=== PATIENT | female | born 1955 | race Caucasian/White ===

== ENCOUNTER 2017-02-13 11:18 | Emergency (ER) | payer MEDICAID ==
[~2017-02-13] VITALS: Ht 170.2 cm; Wt 55.0 kg
[~2017-02-13 11:18] MED LIST: CARI250T PO; IBUPROFEN PO; VIC PO
[2017-02-13] MEDS ORDERED: SODIUM CHLORIDE 0.9% 1,000 ML IV ONE (11:33)
[2017-02-13] MEDS ORDERED: HYDROCODONE/ACETAMINOPHEN 10/325MG TABLET PO ONE (12:00)
[2017-02-13 12:13] LABS: BASOPHILS % 0.4 % (0.0-2.0); EOSINOPHILS % 5.4 % (0.0-5.0); HEMATOCRIT. 39.9 % (36.0-48.0); HEMOGLOBIN. 13.7 g/dL (12.0-16.0); LYMPHOCYTES % 27.4 % (20.0-50.0); MEAN CORPUSCULAR HEMOGLOBIN 30.7 pg (28.0-32.0); MEAN CORPUSCULAR VOLUME 89.9 fL (81.0-99.0); MEAN PLATELET VOLUME 8.2 fl (7.4-10.4); MONOCYTES % 6.8 % (2.0-8.0); PLATELET 231 x1000/uL (130-400); RED BLOOD CELL COUNT 4.44 mill/uL (4.2-5.4); RED CELL DISTRIBUTION WIDTH 14.2 % (11.6-14.6)
[2017-02-13 12:31] LABS: CARBON DIOXIDE 26 mEq/L (21-32); CHLORIDE 106 mEq/L (98-107); TROPONIN I < 0.02 ng/mL (0.00-0.04)
[2017-02-13] MEDS ORDERED: KETOROLAC 30MG/ML VIAL IV ONE (14:45)
[2017-02-13 15:44] VITALS: BP 107/75
== END 2017-02-13 15:48 | disposition home or self-care (01) ==
LOC: ER 11:23
DX: S70.02XA Contusion of left hip, initial encounter (principal); R42 Dizziness and giddiness; R21 Rash and other nonspecific skin eruption; Z88.0 Allergy status to penicillin; W17.89XA Other fall from one level to another, initial encounter; Y93.89 Activity, other specified; Y99.8 Other external cause status; Y92.89 Other specified places as the place of occurrence of the external cause
CPT/HCPCS: 36415; 73502; 80053; 84484; 85025; 93005; 96374; 99285; J1885; Z7610; J7030

== ENCOUNTER 2018-11-23 14:12 | Emergency (ER) | payer MEDICAID ==
[~2018-11-23] VITALS: Ht 170.2 cm; Wt 55.0 kg
[~2018-11-23 14:12] MED LIST changes: +HYDR-4005 PO
[2018-11-23] MEDS ORDERED: METHOCARBAMOL 750MG TABLET PO STA (16:23)
[2018-11-23] MEDS ORDERED: KETOROLAC 60MG/2ML VIAL IM ONE (16:30)
[2018-11-23] MEDS ORDERED: MORPHINE SULFATE 10 MG/ML CPJ IM ONE (16:30)
[2018-11-23 17:58] VITALS: BP 101/68
== END 2018-11-23 17:59 | disposition home or self-care (01) ==
LOC: ER 14:12
DX: M62.838 Other muscle spasm (principal); Z88.0 Allergy status to penicillin; Z79.899 Other long term (current) drug therapy; Z98.890 Other specified postprocedural states
CPT/HCPCS: 96372; 99283; J1885; J2270

== ENCOUNTER 2021-08-19 09:37 | Inpatient (IN) | payer MEDICARE, MEDICAID ==
[~2021-08-19] VITALS: Ht 170.2 cm; Wt 61.0 kg
[2021-08-19 16:00] VITALS: BP 110/60
[2021-08-19 16:11] VITALS: BP 110/60
[2021-08-19] MEDS ORDERED: GUAIFENESIN 200MG/10ML SUGAR FREE UDC PO PRN (16:30)
[2021-08-19] MEDS ORDERED: HYDROCODONE/ACETAMINOPHEN 10/325MG TABLET PO PRN (16:30)
[2021-08-19] MEDS ORDERED: ZOLPIDEM TARTRATE 5MG TABLET PO PRN (16:30)
[2021-08-19] MEDS ORDERED: MECLIZINE 12.5MG TABLET PO PRN (16:30)
[2021-08-19] MEDS ORDERED: ONDANSETRON HCL 4MG/2ML INJ IV PRN (16:30)
[2021-08-19] MEDS ORDERED: IPRATROPIUM/ALBUTEROL 0.5-3(2.5)MG/3ML NEB NEB PRN (16:30)
[2021-08-19 17:21] LABS: BASOPHILS % 0.2 % (0.0-2.0); EOSINOPHILS % 1.3 % (0.0-5.0); HEMATOCRIT. 34.3 % (36.0-48.0); HEMOGLOBIN. 11.4 g/dL (12.0-16.0); LYMPHOCYTES % 17.7 % (20.0-50.0); MEAN CORPUSCULAR HEMOGLOBIN 30.2 pg (28.0-32.0); MEAN CORPUSCULAR VOLUME 90.5 fL (81.0-99.0); MEAN PLATELET VOLUME 8.1 fl (7.4-10.4); MONOCYTES % 8.3 % (2.0-8.0); NEUTROPHILS % 72.5 % (40.0-76.0); PLATELET 206 x1000/uL (130-400); RED BLOOD CELL COUNT 3.79 mill/uL (4.2-5.4); RED CELL DISTRIBUTION WIDTH 14.1 % (11.6-14.6)
[2021-08-19 17:32] LABS: PROTHROMBIN TIME 10.9 sec (9.6-11.0)
[2021-08-19 17:33] LABS: CHLORIDE 109 mEq/L (98-107)
[2021-08-19 20:00] VITALS: BP 98/46
[2021-08-19] MEDS: IPRATROPIUM/ALBUTEROL 0.5-3(2.5)MG/3ML NEB HHN SCH (20:21)
[2021-08-19] MEDS ORDERED: ALPRAZOLAM 0.25 MG TABLET PO NR (20:30)
[2021-08-19] MEDS ORDERED: ALPRAZOLAM 0.5 MG TABLET PO NR (20:30)
[2021-08-20] VITALS: BP 98/52
[2021-08-20] MEDS: IPRATROPIUM/ALBUTEROL 0.5-3(2.5)MG/3ML NEB HHN SCH ×3 (02:31→13:02)
[2021-08-20 04:00] VITALS: BP 108/61
[2021-08-20 04:52] LABS: *AMPHETAMINES SCREEN URINE NEGATIVE (NEGATIVE); *BARBITURATES SCREEN URINE NEGATIVE (NEGATIVE); *BENZODIAZEPINES SCREEN URINE NEGATIVE (NEGATIVE); *COCAINE SCREEN URINE NEGATIVE (NEGATIVE); CANNABINOID URINE SCREEN NEGATIVE (NEGATIVE); METHADONE URINE SCREEN NEGATIVE (NEGATIVE); OPIATES URINE SCREEN PRESUMTIVE POSITIVE (NEGATIVE); PHENCYCLIDINE URINE SCREEN NEGATIVE (NEGATIVE)
[2021-08-20 08:00] VITALS: BP 127/89
[2021-08-20 09:18] LABS: CLARITY URINE CLEAR (CLEAR); COLOR URINE YELLOW (YELLOW); KETONES URINE NEGATIVE (NEGATIVE); LEUKOCYTE ESTERASE URINE NEGATIVE (NEGATIVE); NITRITE URINE NEGATIVE (NEGATIVE); OCCULT BLOOD URINE NEGATIVE (NEGATIVE); PH URINE 7.5 (4.5-8.0); PROTEIN URINE TRACE (NEGATIVE); SPECIFIC GRAVITY URINE 1.019 (1.005-1.030)
[2021-08-20 09:42] LABS: BASOPHILS % 0.3 % (0.0-2.0); EOSINOPHILS % 1.8 % (0.0-5.0); HEMATOCRIT. 31.9 % (36.0-48.0); HEMOGLOBIN. 10.7 g/dL (12.0-16.0); LYMPHOCYTES % 25.2 % (20.0-50.0); MEAN CORPUSCULAR HEMOGLOBIN 30.3 pg (28.0-32.0); MEAN CORPUSCULAR VOLUME 90.7 fL (81.0-99.0); MEAN PLATELET VOLUME 8.1 fl (7.4-10.4); MONOCYTES % 9.5 % (2.0-8.0); NEUTROPHILS % 63.2 % (40.0-76.0); PLATELET 192 x1000/uL (130-400); RED BLOOD CELL COUNT 3.52 mill/uL (4.2-5.4); RED CELL DISTRIBUTION WIDTH 13.9 % (11.6-14.6)
[2021-08-20 10:01] LABS: CHLORIDE 109 mEq/L (98-107)
[2021-08-20] MEDS ORDERED: KCL 20MEQ/100ML PREMIX 100 ML IV NR (10:15)
[2021-08-20] MEDS ORDERED: GABAPENTIN 300MG CAPSULE PO SCH (11:45)
[2021-08-20] MEDS ORDERED: MORPHINE SULFATE/PF 1MG/ML 10ML AMP ONE (13:02)
[2021-08-20] MEDS ORDERED: ROCURONIUM BROMIDE 10MG/ML VIAL 5ML IV ONE ×2 (14:08→15:55)
[2021-08-20] MEDS ORDERED: ALBUMIN HUMAN 25GM/100ML (25%) IV ONE ×3 (14:26→20:32)
[2021-08-20] MEDS ORDERED: POLYMYXIN B SULFATE 500000 UNITS/VIAL ONE (14:42)
[2021-08-20] MEDS ORDERED: SKIN ADHESIVE 0.7 GM EA TOP ONE (14:43)
[2021-08-20] MEDS ORDERED: BUPIVACAINE HCL/PF 0.25% (2.5MG/ML) 10ML ONE (14:43)
[2021-08-20] MEDS ORDERED: DEXAMETHASONE 4MG/ML 1ML VIAL ONE (15:04)
[2021-08-20] MEDS ORDERED: CEFAZOLIN SODIUM 1000MG/VIAL ONE (15:04)
[2021-08-20] MEDS ORDERED: GLYCOPYRROLATE 0.2 MG/ML 2ML VIAL ONE ×3 (15:04→17:04)
[2021-08-20] MEDS ORDERED: NEOSTIGMINE METHYLSULFATE 1MG/ML 10 ML VIAL ONE (16:48)
[2021-08-20] MEDS ORDERED: MEPERIDINE HCL/PF 25MG/ML CPJ IV PRN (17:15)
[2021-08-20] MEDS ORDERED: ONDANSETRON HCL 4MG/2ML INJ IV PRN (17:15)
[2021-08-20] MEDS ORDERED: LABETALOL 5MG/ML SYR 20 MG/4 ML SYRINGE IV PRN (17:15)
[2021-08-20] MEDS ORDERED: NALOXONE HCL 0.4MG/ML VIAL IV PRN (17:30)
[2021-08-20 17:49] LABS: BG BASE EXCESS -5.3 mmol/L (-2.0-2.0); BG CARBOXYHEMOGLOBIN 0.3 % (0.5-1.5); BG DEOXYHEMOGLOBIN 4.9 % (0.0-5.0); BG FRACTION INSPIRED OXYGEN 100; BG HCO3 ACT 21.5 mmol/L (22.0-26.0); BG METHEMOGLOBIN 0.2 % (0.0-1.5); BG OXYGEN SATURATION 95.1 % (92.0-98.5); BG OXYHEMOGLOBIN 94.6 % (94.0-97.0); BG PCO2 48.2 mmHg (35.0-45.0); BG PH 7.268 (7.350-7.450); BG PO2 86.5 mmHg (75.0-100.0); BG SAMPLE SITE ALINE; BG VENT MODE MASK - NRB
[2021-08-20] MEDS: HYDROMORPHONE HCL/PF 2MG/ML CPJ IV PRN ×3 (17:50→18:03)
[2021-08-20] MEDS: MORPHINE SULFATE 2 MG/ML CPJ (NOT FOR IM USE) IV PRN (18:09)
[2021-08-20] MEDS ORDERED: SODIUM BICARBONATE 8.4% 1 MEQ/ML 50ML SYR IV NR (19:15)
[2021-08-20] MEDS ORDERED: IPRATROPIUM/ALBUTEROL 0.5-3(2.5)MG/3ML NEB ONE (19:35)
[2021-08-20] MEDS ORDERED: IPRATROPIUM/ALBUTEROL 0.5-3(2.5)MG/3ML NEB HHN SCH ×2 (19:45→20:00)
[2021-08-20 19:47] LABS: CHLORIDE 116 mEq/L (98-107)
[2021-08-20 19:50] LABS: INR 1.1; PARTIAL THROMBOPLASTIN TIME 43.3 sec (23.4-31.0); PROTHROMBIN TIME 12.1 sec (9.6-11.0)
[2021-08-20 19:52] LABS: BASOPHILS % 0.1 % (0.0-2.0); EOSINOPHILS % 0.2 % (0.0-5.0); HEMATOCRIT. 24.3 % (36.0-48.0); HEMOGLOBIN. 8.3 g/dL (12.0-16.0); LYMPHOCYTES % 9.2 % (20.0-50.0); MEAN CORPUSCULAR HEMOGLOBIN 31.5 pg (28.0-32.0); MEAN CORPUSCULAR VOLUME 92.2 fL (81.0-99.0); MEAN PLATELET VOLUME 7.5 fl (7.4-10.4); MONOCYTES % 3.2 % (2.0-8.0); NEUTROPHILS % 87.3 % (40.0-76.0); PLATELET 133 x1000/uL (130-400); RED BLOOD CELL COUNT 2.63 mill/uL (4.2-5.4)
[2021-08-20] MEDS ORDERED: ALBUMIN HUMAN 25GM/500ML (5%) IV NR (20:30)
[2021-08-20] MEDS ORDERED: DOPAMINE HCL 400 MG in DEXT 5% WATER 240 ML IV SCH (20:30)
[2021-08-20] MEDS ORDERED: ALBUMIN HUMAN 25GM/100ML (25%) IV NR (20:30)
[2021-08-20 20:47] LABS: BG BASE EXCESS -7.1 mmol/L (-2.0-2.0); BG CARBOXYHEMOGLOBIN 0.3 % (0.5-1.5); BG DEOXYHEMOGLOBIN 14.6 % (0.0-5.0); BG FRACTION INSPIRED OXYGEN 40; BG HCO3 ACT 20.3 mmol/L (22.0-26.0); BG METHEMOGLOBIN 0.6 % (0.0-1.5); BG OXYGEN SATURATION 85.3 % (92.0-98.5); BG OXYHEMOGLOBIN 84.5 % (94.0-97.0); BG PCO2 50.6 mmHg (35.0-45.0); BG PH 7.222 (7.350-7.450); BG PO2 58.2 mmHg (75.0-100.0); BG SAMPLE SITE ALINE; BG TOTAL HEMOGLOBIN 8.6 g/dL (12.0-18.0); BG VENT MODE NASAL CANNULA
[2021-08-20] MEDS ORDERED: CALCIUM CHLORIDE 1,000 MG in DEXT 5% WATER 90 ML IV SCH (21:30)
[2021-08-20] MEDS ORDERED: SODIUM BICARBONATE 8.4% 1 MEQ/ML 50ML SYR IV ONE (21:30)
[2021-08-20] MEDS ORDERED: CALCIUM CHLORIDE 1GM/10ML SYR IV ONE (21:35)
[2021-08-20] MEDS ORDERED: SODIUM BICARBONATE IV ONE (21:45)
[2021-08-20] MEDS: KETOROLAC 15MG/ML VIAL IV SCH (22:00)
[2021-08-20] MEDS ORDERED: IPRATROPIUM/ALBUTEROL 0.5-3(2.5)MG/3ML NEB HHN NR (22:30)
[2021-08-20] MEDS ORDERED: FUROSEMIDE 20MG/2ML VIAL IVP NR (22:30)
[2021-08-21] VITALS (50 sets, daily range): BP systolic 64–139; BP diastolic 35–78
[2021-08-21] MEDS ORDERED: DEXAMETHASONE 4MG/ML 1ML VIAL IV NR (00:30)
[2021-08-21 00:41] LABS: BG BASE EXCESS 1.6 mmol/L (-2.0-2.0); BG CARBOXYHEMOGLOBIN 0.3 % (0.5-1.5); BG DEOXYHEMOGLOBIN 6.2 % (0.0-5.0); BG FRACTION INSPIRED OXYGEN 100; BG HCO3 ACT 28.3 mmol/L (22.0-26.0); BG METHEMOGLOBIN 0.2 % (0.0-1.5); BG OXYGEN SATURATION 93.8 % (92.0-98.5); BG OXYHEMOGLOBIN 93.3 % (94.0-97.0); BG PCO2 56.8 mmHg (35.0-45.0); BG PH 7.316 (7.350-7.450); BG PO2 73.7 mmHg (75.0-100.0); BG SAMPLE SITE LEFT RADIAL; BG VENT MODE MASK - NRB
[2021-08-21] MEDS: IPRATROPIUM/ALBUTEROL 0.5-3(2.5)MG/3ML NEB HHN SCH ×5 (02:39→20:24)
[2021-08-21 03:12] LABS: BG BASE EXCESS 1.9 mmol/L (-2.0-2.0); BG CARBOXYHEMOGLOBIN 0.3 % (0.5-1.5); BG DEOXYHEMOGLOBIN 0.9 % (0.0-5.0); BG FRACTION INSPIRED OXYGEN 100; BG HCO3 ACT 28.2 mmol/L (22.0-26.0); BG METHEMOGLOBIN 0.3 % (0.0-1.5); BG OXYGEN SATURATION 99.1 % (92.0-98.5); BG OXYHEMOGLOBIN 98.5 % (94.0-97.0); BG PCO2 54.4 mmHg (35.0-45.0); BG PH 7.333 (7.350-7.450); BG PO2 302.9 mmHg (75.0-100.0); BG SAMPLE SITE ALINE; BG TOTAL HEMOGLOBIN 8.5 g/dL (12.0-18.0); BG TOTAL RESPIRATORY RATE 19 b/min; BG VENT MODE MASK - BIPAP
[2021-08-21 05:56] LABS: BASOPHILS % 0.2 % (0.0-2.0); HEMATOCRIT. 25.7 % (36.0-48.0); HEMOGLOBIN. 8.8 g/dL (12.0-16.0); LYMPHOCYTES % 10.9 % (20.0-50.0); MEAN CORPUSCULAR HEMOGLOBIN 31.2 pg (28.0-32.0); MEAN CORPUSCULAR VOLUME 91.6 fL (81.0-99.0); MEAN PLATELET VOLUME 7.9 fl (7.4-10.4); MONOCYTES % 4.9 % (2.0-8.0); PLATELET 155 x1000/uL (130-400); RED BLOOD CELL COUNT 2.81 mill/uL (4.2-5.4); RED CELL DISTRIBUTION WIDTH 14.3 % (11.6-14.6)
[2021-08-21] MEDS: KETOROLAC 15MG/ML VIAL IV SCH ×3 (06:00→22:11)
[2021-08-21] MEDS: GABAPENTIN 300MG CAPSULE PO SCH ×3 (06:00→22:12)
[2021-08-21 06:30] LABS: INR 1.1; PARTIAL THROMBOPLASTIN TIME 39.2 sec (23.4-31.0); PROTHROMBIN TIME 11.3 sec (9.6-11.0)
[2021-08-21 06:34] LABS: CHLORIDE 111 mEq/L (98-107)
[2021-08-21] MEDS: SODIUM CHLORIDE 0.9% 1,000 ML IV SCH ×2 (07:57→22:12)
[2021-08-21] MEDS: MORPHINE SULFATE 2 MG/ML CPJ (NOT FOR IM USE) IV PRN ×4 (08:14→23:07)
[2021-08-21] MEDS ORDERED: PHENYLEPHRINE 100 MG in DEXT 5% WATER 240 ML IV PRN (21:00)
[2021-08-22] VITALS (90 sets, daily range): BP systolic 87–143; BP diastolic 26–97
[2021-08-22] MEDS: IPRATROPIUM/ALBUTEROL 0.5-3(2.5)MG/3ML NEB HHN SCH ×6 (00:36→20:46)
[2021-08-22] MEDS: MORPHINE SULFATE 2 MG/ML CPJ (NOT FOR IM USE) IV PRN ×4 (00:45→10:12)
[2021-08-22] MEDS: KETOROLAC 15MG/ML VIAL IV SCH ×3 (06:00→22:12)
[2021-08-22] MEDS: GABAPENTIN 300MG CAPSULE PO SCH ×3 (06:00→22:12)
[2021-08-22] MEDS: SODIUM CHLORIDE 0.9% 1,000 ML IV SCH ×2 (10:10→23:15)
[2021-08-22] MEDS ORDERED: LEVOFLOXACIN 500MG PREMIX 100 ML IV SCH (13:00)
[2021-08-22] MEDS: MIDODRINE HCL 5MG TABLET PO SCH ×2 (14:01→16:40)
[2021-08-22 23:51] LABS: BASOPHILS % 0.1 % (0.0-2.0); EOSINOPHILS % 0.1 % (0.0-5.0); HEMATOCRIT. 24.9 % (36.0-48.0); HEMOGLOBIN. 8.3 g/dL (12.0-16.0); MEAN CORPUSCULAR HEMOGLOBIN 30.9 pg (28.0-32.0); MEAN CORPUSCULAR VOLUME 92.8 fL (81.0-99.0); MEAN PLATELET VOLUME 7.7 fl (7.4-10.4); MONOCYTES % 9.2 % (2.0-8.0); NEUTROPHILS % 76.6 % (40.0-76.0); PLATELET 185 x1000/uL (130-400); RED BLOOD CELL COUNT 2.68 mill/uL (4.2-5.4); RED CELL DISTRIBUTION WIDTH 14.7 % (11.6-14.6)
[2021-08-22 23:57] LABS: CHLORIDE 113 mEq/L (98-107)
[2021-08-23] VITALS (45 sets, daily range): BP systolic 91–154; BP diastolic 43–87
[2021-08-23] MEDS: IPRATROPIUM/ALBUTEROL 0.5-3(2.5)MG/3ML NEB HHN SCH ×6 (00:35→20:55)
[2021-08-23] MEDS: MORPHINE SULFATE 2 MG/ML CPJ (NOT FOR IM USE) IV PRN ×2 (00:48→22:12)
[2021-08-23] MEDS: GABAPENTIN 300MG CAPSULE PO SCH ×3 (05:40→22:00)
[2021-08-23] MEDS: MIDODRINE HCL 5MG TABLET PO SCH ×3 (08:52→18:13)
[2021-08-23] MEDS: DEXT 5%/0.9% NACL 1,000 ML IV SCH (10:47)
[2021-08-23 12:19] LABS: BASOPHILS % 0.5 % (0.0-2.0); EOSINOPHILS % 0.3 % (0.0-5.0); HEMATOCRIT. 25.2 % (36.0-48.0); HEMOGLOBIN. 8.4 g/dL (12.0-16.0); LYMPHOCYTES % 15.5 % (20.0-50.0); MEAN CORPUSCULAR HEMOGLOBIN 30.2 pg (28.0-32.0); MEAN CORPUSCULAR VOLUME 90.9 fL (81.0-99.0); MONOCYTES % 10.2 % (2.0-8.0); NEUTROPHILS % 73.5 % (40.0-76.0); PLATELET 194 x1000/uL (130-400); RED BLOOD CELL COUNT 2.77 mill/uL (4.2-5.4); RED CELL DISTRIBUTION WIDTH 14.6 % (11.6-14.6)
[2021-08-23 12:24] LABS: CHLORIDE 113 mEq/L (98-107)
[2021-08-23] MEDS: METHYLPREDNISOLONE SOD SUCC 40 MG/ML VIAL IV SCH ×2 (13:02→21:38)
[2021-08-23] MEDS: ACETYLCYSTEINE 100MG/ML 10% VIAL 4ML INH SCH (15:37)
[2021-08-24] VITALS (24 sets, daily range): BP systolic 91–138; BP diastolic 45–90
[2021-08-24] MEDS: DEXT 5%/0.9% NACL 1,000 ML IV SCH ×2 (00:53→12:42)
[2021-08-24] MEDS: IPRATROPIUM/ALBUTEROL 0.5-3(2.5)MG/3ML NEB HHN SCH ×6 (02:29→20:25)
[2021-08-24] MEDS: ACETYLCYSTEINE 100MG/ML 10% VIAL 4ML INH SCH ×3 (02:29→15:35)
[2021-08-24] MEDS: MORPHINE SULFATE 2 MG/ML CPJ (NOT FOR IM USE) IV PRN ×4 (03:51→20:17)
[2021-08-24] MEDS: GABAPENTIN 300MG CAPSULE PO SCH ×3 (07:50→22:00)
[2021-08-24] MEDS: METHYLPREDNISOLONE SOD SUCC 40 MG/ML VIAL IV SCH ×2 (08:26→20:17)
[2021-08-24] MEDS: MIDODRINE HCL 5MG TABLET PO SCH ×3 (08:27→17:16)
[2021-08-24 09:49] LABS: BG BASE EXCESS 1.8 mmol/L (-2.0-2.0); BG CARBOXYHEMOGLOBIN 0.3 % (0.5-1.5); BG DEOXYHEMOGLOBIN 5.2 % (0.0-5.0); BG FRACTION INSPIRED OXYGEN 60; BG HCO3 ACT 25.7 mmol/L (22.0-26.0); BG METHEMOGLOBIN 0.3 % (0.0-1.5); BG OXYGEN SATURATION 94.8 % (92.0-98.5); BG OXYHEMOGLOBIN 94.2 % (94.0-97.0); BG PCO2 37.1 mmHg (35.0-45.0); BG PH 7.458 (7.350-7.450); BG PO2 71.3 mmHg (75.0-100.0); BG SAMPLE SITE RIGHT RADIAL; BG TOTAL HEMOGLOBIN 8.6 g/dL (12.0-18.0); BG VENT MODE MASK - BIPAP
[2021-08-24 15:25] LABS: BASOPHILS % 0.1 % (0.0-2.0); HEMATOCRIT. 26.3 % (36.0-48.0); HEMOGLOBIN. 8.8 g/dL (12.0-16.0); LYMPHOCYTES % 7.2 % (20.0-50.0); MEAN CORPUSCULAR HEMOGLOBIN 31.1 pg (28.0-32.0); MEAN CORPUSCULAR VOLUME 93.1 fL (81.0-99.0); MEAN PLATELET VOLUME 7.8 fl (7.4-10.4); MONOCYTES % 5.3 % (2.0-8.0); NEUTROPHILS % 87.4 % (40.0-76.0); PLATELET 284 x1000/uL (130-400); RED BLOOD CELL COUNT 2.83 mill/uL (4.2-5.4); RED CELL DISTRIBUTION WIDTH 14.3 % (11.6-14.6)
[2021-08-24 15:35] LABS: CHLORIDE 112 mEq/L (98-107)
[2021-08-25] VITALS (24 sets, daily range): BP systolic 112–154; BP diastolic 52–94
[2021-08-25] MEDS: IPRATROPIUM/ALBUTEROL 0.5-3(2.5)MG/3ML NEB HHN SCH ×6 (00:21→21:01)
[2021-08-25] MEDS: ACETYLCYSTEINE 100MG/ML 10% VIAL 4ML INH SCH ×3 (00:22→15:59)
[2021-08-25] MEDS: MORPHINE SULFATE 2 MG/ML CPJ (NOT FOR IM USE) IV PRN ×6 (00:23→20:33)
[2021-08-25] MEDS: DEXT 5%/0.9% NACL 1,000 ML IV SCH ×2 (03:11→14:57)
[2021-08-25 05:14] LABS: HEMATOCRIT. 25.7 % (36.0-48.0); HEMOGLOBIN. 8.9 g/dL (12.0-16.0); LYMPHOCYTES % 9.2 % (20.0-50.0); MEAN CORPUSCULAR HEMOGLOBIN 31.9 pg (28.0-32.0); MEAN PLATELET VOLUME 7.4 fl (7.4-10.4); MONOCYTES % 5.5 % (2.0-8.0); NEUTROPHILS % 85.3 % (40.0-76.0); PLATELET 293 x1000/uL (130-400); RED BLOOD CELL COUNT 2.79 mill/uL (4.2-5.4); RED CELL DISTRIBUTION WIDTH 14.4 % (11.6-14.6)
[2021-08-25 05:22] LABS: CHLORIDE 112 mEq/L (98-107)
[2021-08-25] MEDS: GABAPENTIN 300MG CAPSULE PO SCH ×3 (05:34→20:33)
[2021-08-25 08:19] LABS: BG BASE EXCESS -1.1 mmol/L (-2.0-2.0); BG CARBOXYHEMOGLOBIN 0.3 % (0.5-1.5); BG DEOXYHEMOGLOBIN 5.1 % (0.0-5.0); BG FRACTION INSPIRED OXYGEN 50; BG HCO3 ACT 22.8 mmol/L (22.0-26.0); BG METHEMOGLOBIN 0.3 % (0.0-1.5); BG OXYGEN SATURATION 94.9 % (92.0-98.5); BG OXYHEMOGLOBIN 94.3 % (94.0-97.0); BG PCO2 34.5 mmHg (35.0-45.0); BG PH 7.438 (7.350-7.450); BG PO2 72.5 mmHg (75.0-100.0); BG SAMPLE SITE RIGHT RADIAL; BG TOTAL HEMOGLOBIN 8.3 g/dL (12.0-18.0); BG VENT MODE MASK - BIPAP
[2021-08-25] MEDS: METHYLPREDNISOLONE SOD SUCC 40 MG/ML VIAL IV SCH ×2 (08:36→20:33)
[2021-08-25] MEDS: MIDODRINE HCL 5MG TABLET PO SCH ×3 (08:36→16:53)
[2021-08-25] MEDS ORDERED: NALOXONE HCL 0.4MG/ML VIAL IV PRN (18:15)
[2021-08-26] VITALS (26 sets, daily range): BP systolic 93–158; BP diastolic 40–106
[2021-08-26] MEDS: ACETYLCYSTEINE 100MG/ML 10% VIAL 4ML INH SCH ×4 (00:36→20:15)
[2021-08-26] MEDS: IPRATROPIUM/ALBUTEROL 0.5-3(2.5)MG/3ML NEB HHN SCH ×6 (00:39→20:15)
[2021-08-26] MEDS: MORPHINE SULFATE 2 MG/ML CPJ (NOT FOR IM USE) IV PRN ×4 (01:21→20:42)
[2021-08-26] MEDS: GABAPENTIN 300MG CAPSULE PO SCH ×3 (05:35→21:19)
[2021-08-26] MEDS: DEXT 5%/0.9% NACL 1,000 ML IV SCH ×2 (05:35→18:32)
[2021-08-26] MEDS: MIDODRINE HCL 5MG TABLET PO SCH (08:35)
[2021-08-26] MEDS: METHYLPREDNISOLONE SOD SUCC 40 MG/ML VIAL IV SCH ×2 (08:46→20:42)
[2021-08-26 10:33] LABS: HEMATOCRIT. 28.4 % (36.0-48.0); HEMOGLOBIN. 9.4 g/dL (12.0-16.0); MEAN CORPUSCULAR HEMOGLOBIN 30.5 pg (28.0-32.0); MEAN PLATELET VOLUME 7.4 fl (7.4-10.4); PLATELET 379 x1000/uL (130-400); RED BLOOD CELL COUNT 3.09 mill/uL (4.2-5.4); RED CELL DISTRIBUTION WIDTH 14.4 % (11.6-14.6)
[2021-08-26 10:45] LABS: CHLORIDE 107 mEq/L (98-107)
[2021-08-26] MEDS ORDERED: ENOXAPARIN 40MG/0.4ML SYR SUBCUT SCH (12:46)
[2021-08-26 13:17] LABS: PLATELET ESTIMATE NORMAL
[2021-08-26] MEDS ORDERED: IOHEXOL-350 100 ML BOTTLE ONE (13:51)
[2021-08-26] MEDS: ENOXAPARIN 30MG/0.3ML SYR SUBCUT SCH (14:49)
[2021-08-26] MEDS: FUROSEMIDE 40MG/4ML VIAL IVP SCH (17:16)
[2021-08-27] VITALS (24 sets, daily range): BP systolic 92–142; BP diastolic 26–80
[2021-08-27] MEDS: IPRATROPIUM/ALBUTEROL 0.5-3(2.5)MG/3ML NEB HHN SCH ×6 (00:17→21:13)
[2021-08-27] MEDS: MORPHINE SULFATE 2 MG/ML CPJ (NOT FOR IM USE) IV PRN ×6 (00:42→22:34)
[2021-08-27] MEDS: GABAPENTIN 300MG CAPSULE PO SCH ×3 (05:09→21:57)
[2021-08-27 05:29] LABS: HEMATOCRIT. 27.3 % (36.0-48.0); HEMOGLOBIN. 9.3 g/dL (12.0-16.0); MEAN CORPUSCULAR HEMOGLOBIN 30.9 pg (28.0-32.0); MEAN CORPUSCULAR VOLUME 90.2 fL (81.0-99.0); MEAN PLATELET VOLUME 7.1 fl (7.4-10.4); PLATELET 344 x1000/uL (130-400); RED BLOOD CELL COUNT 3.02 mill/uL (4.2-5.4); RED CELL DISTRIBUTION WIDTH 14.3 % (11.6-14.6)
[2021-08-27 05:33] LABS: CHLORIDE 102 mEq/L (98-107)
[2021-08-27] MEDS: DEXT 5%/0.9% NACL 1,000 ML IV SCH (08:07)
[2021-08-27 09:00] LABS: BG BASE EXCESS 6.3 mmol/L (-2.0-2.0); BG CARBOXYHEMOGLOBIN 0.3 % (0.5-1.5); BG DEOXYHEMOGLOBIN 2.1 % (0.0-5.0); BG FRACTION INSPIRED OXYGEN 100; BG HCO3 ACT 30.1 mmol/L (22.0-26.0); BG METHEMOGLOBIN 0.2 % (0.0-1.5); BG OXYGEN SATURATION 97.9 % (92.0-98.5); BG OXYHEMOGLOBIN 97.4 % (94.0-97.0); BG PH 7.494 (7.350-7.450); BG PO2 104.7 mmHg (75.0-100.0); BG SAMPLE SITE RIGHT RADIAL; BG TOTAL HEMOGLOBIN 9.2 g/dL (12.0-18.0); BG VENT MODE MASK - NRB
[2021-08-27] MEDS: ACETYLCYSTEINE 100MG/ML 10% VIAL 4ML INH SCH ×2 (09:00→17:05)
[2021-08-27] MEDS: METHYLPREDNISOLONE SOD SUCC 40 MG/ML VIAL IV SCH ×2 (09:05→21:57)
[2021-08-27] MEDS: FUROSEMIDE 40MG/4ML VIAL IVP SCH (09:05)
[2021-08-27 12:32] LABS: PLATELET ESTIMATE NORMAL
[2021-08-27] MEDS: ENOXAPARIN 30MG/0.3ML SYR SUBCUT SCH (13:35)
[2021-08-28] VITALS (13 sets, daily range): BP systolic 91–114; BP diastolic 49–72
[2021-08-28] MEDS: IPRATROPIUM/ALBUTEROL 0.5-3(2.5)MG/3ML NEB HHN SCH ×6 (00:54→20:28)
[2021-08-28] MEDS: ACETYLCYSTEINE 100MG/ML 10% VIAL 4ML INH SCH ×2 (00:54→08:22)
[2021-08-28] MEDS: MORPHINE SULFATE 2 MG/ML CPJ (NOT FOR IM USE) IV PRN ×5 (02:27→20:21)
[2021-08-28] MEDS: GABAPENTIN 300MG CAPSULE PO SCH ×3 (05:30→21:40)
[2021-08-28] MEDS: FUROSEMIDE 40MG/4ML VIAL IVP SCH (09:06)
[2021-08-28] MEDS: METHYLPREDNISOLONE SOD SUCC 40 MG/ML VIAL IV SCH ×2 (09:06→21:40)
[2021-08-28 09:34] LABS: BG BASE EXCESS 6.4 mmol/L (-2.0-2.0); BG CARBOXYHEMOGLOBIN 0.2 % (0.5-1.5); BG DEOXYHEMOGLOBIN 6.4 % (0.0-5.0); BG FRACTION INSPIRED OXYGEN 40; BG HCO3 ACT 30.6 mmol/L (22.0-26.0); BG OXYGEN SATURATION 93.6 % (92.0-98.5); BG OXYHEMOGLOBIN 93.4 % (94.0-97.0); BG PCO2 42.2 mmHg (35.0-45.0); BG PH 7.478 (7.350-7.450); BG PO2 66.7 mmHg (75.0-100.0); BG SAMPLE SITE LEFT RADIAL; BG TOTAL HEMOGLOBIN 10.5 g/dL (12.0-18.0); BG VENT MODE NASAL CANNULA
[2021-08-28] MEDS ORDERED: DOCUSATE SODIUM 250MG CAPSULE PO NR (10:15)
[2021-08-28] MEDS: ENOXAPARIN 30MG/0.3ML SYR SUBCUT SCH (15:37)
[2021-08-29] VITALS (18 sets, daily range): BP systolic 90–130; BP diastolic 54–91
[2021-08-29] MEDS: MORPHINE SULFATE 2 MG/ML CPJ (NOT FOR IM USE) IV PRN ×3 (00:04→08:22)
[2021-08-29] MEDS: IPRATROPIUM/ALBUTEROL 0.5-3(2.5)MG/3ML NEB HHN SCH ×6 (00:14→20:53)
[2021-08-29] MEDS: GABAPENTIN 300MG CAPSULE PO SCH ×3 (06:06→22:35)
[2021-08-29 07:25] LABS: HEMATOCRIT. 28.8 % (36.0-48.0); HEMOGLOBIN. 9.7 g/dL (12.0-16.0); MEAN CORPUSCULAR HEMOGLOBIN 30.7 pg (28.0-32.0); MEAN CORPUSCULAR VOLUME 91.1 fL (81.0-99.0); MEAN PLATELET VOLUME 7.6 fl (7.4-10.4); PLATELET 323 x1000/uL (130-400); RED BLOOD CELL COUNT 3.17 mill/uL (4.2-5.4); RED CELL DISTRIBUTION WIDTH 14.3 % (11.6-14.6)
[2021-08-29 07:41] LABS: CHLORIDE 97 mEq/L (98-107)
[2021-08-29] MEDS: METHYLPREDNISOLONE SOD SUCC 40 MG/ML VIAL IV SCH (08:20)
[2021-08-29] MEDS: FUROSEMIDE 40MG/4ML VIAL IVP SCH (08:20)
[2021-08-29] MEDS ORDERED: DOCUSATE SODIUM 100MG CAPSULE PO SCH (09:00)
[2021-08-29] MEDS: ACETYLCYSTEINE 100MG/ML 10% VIAL 4ML INH SCH (09:13)
[2021-08-29] MEDS ORDERED: ACETYLCYSTEINE 100MG/ML 10% VIAL 4ML INH SCH (11:20)
[2021-08-29] MEDS: ENOXAPARIN 30MG/0.3ML SYR SUBCUT SCH (14:00)
[2021-08-29] MEDS ORDERED: LIDOCAINE HCL/PF 1% 10 MG/ML 5ML VIAL ONE (14:10)
[2021-08-29 14:27] LABS: PLATELET ESTIMATE NORMAL
[2021-08-29] MEDS ORDERED: ACETAMINOPHEN 325MG TABLET PO PRN (19:45)
[2021-08-29] MEDS ORDERED: METHYLPREDNISOLONE SOD SUCC 40 MG/ML VIAL IV SCH (21:00)
[2021-08-29] MEDS ORDERED: ATORVASTATIN CALCIUM 20MG TABLET PO SCH (21:00)
[2021-08-30 00:25] VITALS: BP 117/47
== END 2021-08-30 05:22 | DRG 166 ==
LOC: 7WST 14:31 → MICUSO 08-20 18:09 → 7WST 08-20 18:17 → CVICU 08-20 23:15 → 3WST 08-27 20:30
PROVIDERS: ADMIT Hospitalist; ATTEND Hospitalist
PROC: 0BJ08ZZ Inspection of Tracheobronchial Tree, Via Natural or Artificial Opening Endoscopic (ICD-10-PCS; principal; 2021-08-20)
PROC: 07B74ZX Excision of Thorax Lymphatic, Percutaneous Endoscopic Approach, Diagnostic (ICD-10-PCS; 2021-08-20)
PROC: 0W9B4ZZ Drainage of Left Pleural Cavity, Percutaneous Endoscopic Approach (ICD-10-PCS; 2021-08-20)
PROC: 5A09357 Assistance with Respiratory Ventilation, Less than 24 Consecutive Hours, Continuous Positive Airway Pressure (ICD-10-PCS; 2021-08-21)
PROC: 5A09557 Assistance with Respiratory Ventilation, Greater than 96 Consecutive Hours, Continuous Positive Airway Pressure (ICD-10-PCS; 2021-08-22)
DX: C34.90 Malignant neoplasm of unspecified part of unspecified bronchus or lung (principal); J96.90 Respiratory failure, unspecified, unspecified whether with hypoxia or hypercapnia; J84.9 Interstitial pulmonary disease, unspecified; J90 Pleural effusion, not elsewhere classified; R04.2 Hemoptysis; E78.5 Hyperlipidemia, unspecified; Z20.822 Contact with and (suspected) exposure to COVID-19; I10 Essential (primary) hypertension; I34.1 Nonrheumatic mitral (valve) prolapse; J44.9 Chronic obstructive pulmonary disease, unspecified; Z96.642 Presence of left artificial hip joint; R59.0 Localized enlarged lymph nodes; D64.9 Anemia, unspecified; D72.829 Elevated white blood cell count, unspecified; E87.70 Fluid overload, unspecified; Z82.49 Family history of ischemic heart disease and other diseases of the circulatory system; R42 Dizziness and giddiness; T78.40XA Allergy, unspecified, initial encounter; J98.4 Other disorders of lung
CPT/HCPCS: 36415; 36600; 71045; 71250; 71275; 80048; 80053; 80305; 81003; 82375; 82378; 82805; 83735; 83880; 84145; 84484; 85025; 86850; 86900; 87426; 88305; 93005; 93306; 93970; 94640; 94660; 94664; J0690; J1100; J1170; J1265; J1650; J1885; J1940; J1956; J2270; J2274; J2370; J2710; J2920; J3480; J3490; J7030; J7042; J7060; J7608; J8597; P9041; P9047; Q9967

== ENCOUNTER 2021-10-13 12:39 | Emergency (ER) | payer MEDICARE, MEDICAID ==
[~2021-10-13] VITALS: Ht 157.5 cm; Wt 64.0 kg
[2021-10-13] MEDS ORDERED: CYCLOBENZAPRINE 10MG TABLET PO ONE (13:00)
[2021-10-13] MEDS ORDERED: LIDOCAINE 5% PATCH TOP SCH (13:00)
[2021-10-13] MEDS ORDERED: KETOROLAC 15MG/ML VIAL IM ONE (13:00)
[2021-10-13] MEDS ORDERED: CYCLOBENZAPRINE 10MG TABLET PO NR (16:30)
[2021-10-13] MEDS ORDERED: KETOROLAC 15MG/ML VIAL IM NR (16:30)
[2021-10-13 16:43] VITALS: BP 122/69
== END 2021-10-13 19:27 | disposition home or self-care (01) ==
LOC: ER 12:39
DX: M54.50 Low back pain, unspecified (principal); G89.29 Other chronic pain; Z88.0 Allergy status to penicillin
CPT/HCPCS: 72128; 72131; 96372; 99284; J1885

== ENCOUNTER → 2022-03-11 | Outpatient (CLI) | payer MEDICARE, MEDICAID ==
[~2022-03-11] MED LIST changes: -CARI250T PO; +GADOTERATE MEGLUMINE 5 MMOL/10 ML VIAL IV ONE; -HYDR-4005 PO; -IBUPROFEN PO; -VIC PO
== END | disposition home or self-care (01) ==
LOC: MRI 12:47
PROVIDERS: ATTEND Neurological Surgery
DX: M47.817 Spondylosis without myelopathy or radiculopathy, lumbosacral region (principal); M25.78 Osteophyte, vertebrae; M48.061 Spinal stenosis, lumbar region without neurogenic claudication
CPT/HCPCS: 72158; A9577

== ENCOUNTER 2024-12-18 18:48 | Inpatient (IN) | payer MEDICARE, MEDICAID ==
[~2024-12-18] VITALS: Ht 170.2 cm; Wt 68.6 kg
[2024-12-18] MEDS ORDERED: CEFEPIME 2,000 MG in DEXT 5% WATER 100 ML IV STA (19:03)
[2024-12-18] MEDS: SODIUM CHLORIDE 0.9% (SEPSIS BOLUS) IV ONE (19:26)
[2024-12-18] MEDS: CEFEPIME 2GM/100ML 100 ML IV SCH (19:47)
[2024-12-18 19:58] LABS: BASOPHILS % 0.4 % (0.0-2.0); EOSINOPHILS % 0.9 % (0.0-5.0); HEMATOCRIT. 30.8 % (36.0-48.0); HEMOGLOBIN. 9.6 g/dL (12.0-16.0); LYMPHOCYTES % 11.8 % (20.0-50.0); MEAN PLATELET VOLUME 7.6 fl (7.4-10.4); MONOCYTES % 6.4 % (2.0-8.0); NEUTROPHILS % 80.5 % (40.0-76.0); PLATELET 441 x1000/uL (130-400); RED BLOOD CELL COUNT 4.02 mill/uL (4.2-5.4); RED CELL DISTRIBUTION WIDTH 18.4 % (11.6-14.6)
[2024-12-18] MEDS: VANCOMYCIN 1G PREMIX 200 ML IV ONE (19:59)
[2024-12-18 20:09] LABS: INR 1.0
[2024-12-18 20:16] LABS: TROPONIN I HIGH SENSITIVITY < 4 ng/L (3.0-34)
[2024-12-18 20:17] LABS: CREATININE 1.1 mg/dL (0.6-1.0)
[2024-12-18 20:18] LABS: UREA NITROGEN BLOOD 15 mg/dL (9-23)
[2024-12-18 20:19] LABS: ASPARTATE AMINOTRANSFERASE 14 IU/L (<34); BILIRUBIN DIRECT < 0.1 mg/dL (<=3.0)
[2024-12-18 20:20] LABS: BILIRUBIN TOTAL 0.3 mg/dL (0.1-1.0); PROTEIN TOTAL 8.2 g/dL (6.0-8.3)
[2024-12-18] MEDS: POTASSIUM CHLORIDE 20MEQ TABLET SR PO ONE (21:43)
[2024-12-18] MEDS ORDERED: ONDANSETRON HCL 4MG/2ML INJ IV PRN (22:00)
[2024-12-18] MEDS ORDERED: CLONIDINE 0.1MG TABLET PO PRN (22:00)
[2024-12-18] MEDS ORDERED: MAGNESIUM/ALUMINUM HYDROXIDE/SIMETHICONE 30ML UDC PO PRN (22:00)
[2024-12-18] MEDS ORDERED: IPRATROPIUM/ALBUTEROL 0.5-3(2.5)MG/3ML NEB HHN PRN (22:00)
[2024-12-18] MEDS ORDERED: DOCUSATE SODIUM 100MG CAPSULE PO PRN (22:00)
[2024-12-18 22:48] LABS: FOLIC ACID (FOLATE) SERUM 19.00 ng/mL (>5.38)
[2024-12-18 22:49] LABS: VITAMIN B12 SERUM 305 pg/mL (211-911)
[2024-12-18 22:55] VITALS: BP 122/62; PULSE 101; RESP 22; TEMP 36.3; O2SAT 91
[2024-12-18 23:20] VITALS: BP 122/62; PULSE 101; RESP 18; TEMP 36.3068
[2024-12-18] MEDS ORDERED: MECL-299 PO (23:29)
[2024-12-18] MEDS ORDERED: PANT40TA51 PO (23:29)
[2024-12-18] MEDS: MAGNESIUM 2 G PREMIX 50 ML IV SCH (23:54)
[2024-12-19] VITALS: BP 120/66; PULSE 92; RESP 18; TEMP 36.3; O2SAT 94
[2024-12-19] MEDS: AMLODIPINE 5MG TABLET PO SCH (00:45)
[2024-12-19] MEDS ORDERED: IPRATROPIUM BROMIDE (0.02%) 0.5MG/2.5ML NEB HHN PRN (01:00)
[2024-12-19] MEDS: POTASSIUM CHLORIDE 20MEQ TABLET SR PO SCH (02:08)
[2024-12-19 04:00] VITALS: BP 113/69; PULSE 92; RESP 18; TEMP 36.1; O2SAT 95
[2024-12-19 07:17] LABS: INFLUENZA TYPE A Presumptive Negative (Pres. Neg.)
[2024-12-19 07:18] LABS: INFLUENZA TYPE B Presumptive Negative (Pres. Neg.); RESPIRATORY SYNCYTIAL VIRUS Not Detected (Not Detectd)
[2024-12-19 08:00] VITALS: BP 108/58; PULSE 92; RESP 16; TEMP 36.3; O2SAT 100
[2024-12-19 08:44] LABS: CLARITY URINE CLEAR (CLEAR); COLOR URINE YELLOW (YELLOW); GLUCOSE URINE NEGATIVE (NEGATIVE); KETONES URINE NEGATIVE (NEGATIVE); LEUKOCYTE ESTERASE URINE NEGATIVE (NEGATIVE); NITRITE URINE NEGATIVE (NEGATIVE); OCCULT BLOOD URINE NEGATIVE (NEGATIVE); PH URINE 7.0 (4.5-8.0); PROTEIN URINE NEGATIVE (NEGATIVE); SPECIFIC GRAVITY URINE 1.019 (1.005-1.030); UROBILINOGEN URINE 0.2 E.U./dL (0.2-1.0)
[2024-12-19 09:05] LABS: BASOPHILS % 0.7 % (0.0-2.0); EOSINOPHILS % 4.3 % (0.0-5.0); HEMATOCRIT. 28.0 % (36.0-48.0); HEMOGLOBIN. 8.6 g/dL (12.0-16.0); LYMPHOCYTES % 21.7 % (20.0-50.0); MEAN PLATELET VOLUME 7.5 fl (7.4-10.4); MONOCYTES % 9.4 % (2.0-8.0); NEUTROPHILS % 63.9 % (40.0-76.0); PLATELET 393 x1000/uL (130-400); RED BLOOD CELL COUNT 3.69 mill/uL (4.2-5.4); RED CELL DISTRIBUTION WIDTH 18.4 % (11.6-14.6)
[2024-12-19] MEDS: PANTOPRAZOLE SODIUM 40 MG/VIAL IV SCH (09:05)
[2024-12-19 09:06] LABS: *AMPHETAMINES SCREEN URINE NEGATIVE (NEGATIVE); *BARBITURATES SCREEN URINE NEGATIVE (NEGATIVE); *BENZODIAZEPINES SCREEN URINE NEGATIVE (NEGATIVE)
[2024-12-19] MEDS: ENOXAPARIN 40MG/0.4ML SYR SUBCUT SCH (09:06)
[2024-12-19 09:07] LABS: *COCAINE SCREEN URINE NEGATIVE (NEGATIVE); CANNABINOID URINE SCREEN NEGATIVE (NEGATIVE); ECSTASY MDMA SCREEN URINE NEGATIVE (NEGATIVE); METHADONE URINE SCREEN NEGATIVE (NEGATIVE); OPIATES URINE SCREEN NEGATIVE (NEGATIVE); PHENCYCLIDINE URINE SCREEN NEGATIVE (NEGATIVE)
[2024-12-19] MEDS: ACETAMINOPHEN 325MG TABLET PO PRN (09:07)
[2024-12-19 09:17] LABS: CREATININE 0.9 mg/dL (0.6-1.0)
[2024-12-19 09:18] LABS: LDL CHOLESTEROL 76 mg/dL (5-100); TRIGLYCERIDE 124 mg/dL (0-150); UREA NITROGEN BLOOD 11 mg/dL (9-23)
[2024-12-19 12:00] VITALS: BP 92/48; PULSE 92; RESP 16; TEMP 36.4; O2SAT 98
[2024-12-19 14:10] LABS: HEPATITIS C AB NON REACTIVE (Neg) (Negative)
[2024-12-19 16:00] VITALS: BP 99/63; PULSE 98; RESP 17; TEMP 36.2; O2SAT 98
[2024-12-19] MEDS ORDERED: CEFEPIME 1GM IN DEXT 5% 50ML IV SCH (17:00)
[2024-12-19 20:00] VITALS: BP 107/60; PULSE 84; RESP 18; TEMP 36.7; O2SAT 100
[2024-12-19] MEDS: CEFEPIME 2GM/100ML 100 ML IV SCH (20:04)
[2024-12-20] VITALS (7 sets, daily range): BP systolic 92–122; BP diastolic 48–65; PULSE 16–100; RESP 16–20; TEMP 36.3–36.4; O2SAT 95–99
[2024-12-20] MEDS: GUAIFENESIN 200MG/10ML SUGAR FREE UDC PO PRN (00:47)
[2024-12-20 07:29] LABS: BASOPHILS % 0.6 % (0.0-2.0); EOSINOPHILS % 8.6 % (0.0-5.0); HEMATOCRIT. 26.7 % (36.0-48.0); HEMOGLOBIN. 8.4 g/dL (12.0-16.0); LYMPHOCYTES % 33.8 % (20.0-50.0); MEAN PLATELET VOLUME 7.4 fl (7.4-10.4); MONOCYTES % 10.4 % (2.0-8.0); NEUTROPHILS % 46.6 % (40.0-76.0); PLATELET 356 x1000/uL (130-400); RED BLOOD CELL COUNT 3.49 mill/uL (4.2-5.4); RED CELL DISTRIBUTION WIDTH 18.1 % (11.6-14.6)
[2024-12-20 07:42] LABS: CREATININE 0.9 mg/dL (0.6-1.0); UREA NITROGEN BLOOD 11 mg/dL (9-23)
[2024-12-20 07:45] LABS: PHOSPHORUS 2.8 mg/dL (2.5-4.9)
[2024-12-20] MEDS ORDERED: IPRATROPIUM/ALBUTEROL 0.5-3(2.5)MG/3ML NEB HHN SCH (12:00)
[2024-12-20] MEDS: DOXYCYCLINE HYCLATE 100MG CAPSULE PO SCH (12:37)
[2024-12-20] MEDS: IPRATROPIUM/ALBUTEROL 0.5-3(2.5)MG/3ML NEB HHN SCH (21:13)
[2024-12-20] MEDS: BUDESONIDE 0.5MG/2ML NEB HHN SCH (21:13)
[2024-12-20] MEDS: ACETAMINOPHEN 325MG TABLET PO PRN (23:20)
[2024-12-21] VITALS (10 sets, daily range): BP systolic 80–114; BP diastolic 49–65; PULSE 85–106; RESP 16–20; TEMP 36.2–36.4; O2SAT 96–100
[2024-12-22] VITALS (9 sets, daily range): BP systolic 93–114; BP diastolic 51–68; PULSE 85–113; RESP 16–20; TEMP 36.2–36.5; O2SAT 94–99
[2024-12-22] MEDS ORDERED: DOXY100C5 PO (16:54)
[2024-12-22] MEDS ORDERED: PULM50 HHN (16:54)
[2024-12-23] VITALS (9 sets, daily range): BP systolic 97–115; BP diastolic 56–58; PULSE 84–116; RESP 16–20; TEMP 36.2–37; O2SAT 95–99
[2024-12-23] MEDS: KETOROLAC 15MG/ML VIAL IV PRN (12:22)
[2024-12-23] MEDS: IPRATROPIUM BROMIDE (0.02%) 0.5MG/2.5ML NEB HHN SCH (21:54)
== END 2024-12-23 22:15 | DRG 683 ==
LOC: ER 18:48 → EDBEDREQ 20:47 → ENRESERV 22:19 → 6WST 22:27 → UNDODISIN 12-23 22:10
PROVIDERS: ADMIT Hospitalist; ATTEND Hospitalist
DX: N17.9 Acute kidney failure, unspecified (principal); E87.20 Acidosis, unspecified; E87.6 Hypokalemia; J44.9 Chronic obstructive pulmonary disease, unspecified; I12.9 Hypertensive chronic kidney disease with stage 1 through stage 4 chronic kidney disease, or unspecified chronic kidney disease; N18.9 Chronic kidney disease, unspecified; E83.42 Hypomagnesemia; D50.9 Iron deficiency anemia, unspecified; Z20.822 Contact with and (suspected) exposure to COVID-19; D72.810 Lymphocytopenia; D75.839 Thrombocytosis, unspecified; Z96.642 Presence of left artificial hip joint; R00.0 Tachycardia, unspecified; I95.9 Hypotension, unspecified; Z74.01 Bed confinement status; Z79.51 Long term (current) use of inhaled steroids; Z79.899 Other long term (current) drug therapy; Z85.118 Personal history of other malignant neoplasm of bronchus and lung; Z86.61 Personal history of infections of the central nervous system; Z87.891 Personal history of nicotine dependence; Z88.0 Allergy status to penicillin; Z99.81 Dependence on supplemental oxygen
CPT/HCPCS: 36415; 71045; 71275; 73560; 80048; 80061; 80076; 80305; 81003; 82607; 82746; 83540; 83550; 83605; 83735; 83880; 84100; 84145; 84443; 84484; 85025; 85379; 86705; 87340; 87420; 87804; 93005; 94070; 94640; 94664; 97110; 97162; 97166; 97530; 97535; 98960; 99291; J0692; J1650; J1885; J2470; J3373; J3475; J7030; J7060; J7626